=== PATIENT | female | born 1975 | race Hispanic/Latino ===

== ENCOUNTER 2023-07-08 00:59 | Emergency (ER) | payer OTHER ==
[~2023-07-08] VITALS: Ht 157.5 cm; Wt 45.8 kg
[2023-07-08] MEDS: HYDROMORPHONE 1 MG INJ IVP ONE ×2 (01:34→02:46)
[2023-07-08] MEDS ORDERED: IBUP-1493 PO (02:10)
[2023-07-08 03:00] LABS: BASOPHILS # (AUTO) 0.12 K/uL (0.00-0.20); BASOPHILS % (AUTO) 1.4 % (0.0-5.0); EOSINOPHILS # (AUTO) 0.35 K/uL (0.00-0.70); EOSINOPHILS % (AUTO) 4.1 % (0.0-8.0); HEMATOCRIT 32.8 % (36-48); IMMATURE GRANULOCYTE ABSOLUTE 0.03 K/uL (0-1); LYMPHOCYTES % (AUTO) 11.2 % (21.0-51.0); MEAN CORPUSCULAR HEMOGLOBIN 34.6 pg (27.0-33.0); MEAN CORPUSCULAR HGB CONC 32.9 g/dL (32.0-36.0); MEAN CORPUSCULAR VOLUME 105.1 fL (79-99); MONOCYTES # (AUTO) 0.7 K/uL (0.1-1.0); MONOCYTES % (AUTO) 7.6 % (3.0-13.0); NEUTROPHILS # (AUTO) 6.4 K/uL (1.8-7.7); NEUTROPHILS % (AUTO) 75.3 % (40.0-77.0); PLATELET COUNT (AUTO) 188 K/uL (130-400); RED BLOOD CELL COUNT(AUTO) 3.12 MIL/uL (4.00-5.50); RED CELL DISTRIBUTION WIDTH 14.6 % (11.0-15.5); WHITE BLOOD COUNT (AUTO) 8.5 K/uL (4.8-10.8)
[2023-07-08 03:13] LABS: CREATININE 0.4 mg/dL (0.5-1.0); POTASSIUM 3.9 mmol/L (3.5-5.1)
[2023-07-08 03:17] LABS: ALBUMIN 3.7 g/dL (3.5-5.0); BILIRUBIN,TOTAL 0.2 mg/dL (0.2-1.0); TOTAL PROTEIN, SERUM 7.6 g/dL (6.0-8.3)
[2023-07-08 03:21] LABS: B-TYPE NATRIURETIC PEPTIDE 58 pg/mL (0-100)
[2023-07-08] MEDS: ACETAMINOPHEN 500 MG TABLET ONE (03:24)
[2023-07-08] MEDS: ACETAMINOPHEN 500 MG TABLET PO ONE (03:30)
[2023-07-08 03:55] LABS: INR 0.96 (0.85-1.15); PROTHROMBIN TIME 11.4 SEC (9.6-11.6)
[2023-07-08 03:57] LABS: PARTIAL THROMBOPLASTIN TIME 28.9 SEC (26.3-35.5)
[2023-07-08 04:18] VITALS: BP 125/82; PULSE 80; RESP 18
== END 2023-07-08 04:22 | disposition home or self-care (01) ==
LOC: EDH 00:59
DX: S42.392A Other fracture of shaft of left humerus, initial encounter for closed fracture (principal); I10 Essential (primary) hypertension; F10.129 Alcohol abuse with intoxication, unspecified; Z98.890 Other specified postprocedural states; W01.0XXA Fall on same level from slipping, tripping and stumbling without subsequent striking against object, initial encounter; Y93.89 Activity, other specified; Y92.89 Other specified places as the place of occurrence of the external cause; Y99.8 Other external cause status
CPT/HCPCS: 99285; 70450; 96374; 29105; 71045; 73060; 84484; 80053; 83880; 85025; 85610; 85730; 36415; 72125; 96376; J1170 ×2